=== PATIENT | female | born 1970 | race Caucasian/White ===

== ENCOUNTER → 2020-12-15 12:19 | Outpatient (CLI) | payer BC, SELFPAY ==
[2020-12-15 22:50] LABS: SARS-CoV-2 RNA PCR Negative
== END ==
PROVIDERS: PCP Registered Nurse; Visit Provider Registered Nurse
DX: Z20.822 Contact with and (suspected) exposure to COVID-19 (principal); R21 Rash and other nonspecific skin eruption
CPT/HCPCS: C9803; U0003; U0005

== ENCOUNTER → 2021-01-27 07:13 | Outpatient (CLI) | payer BC, SELFPAY ==
[2021-01-27 16:22] LABS: SARS-CoV-2 RNA PCR Negative
== END ==
PROVIDERS: PCP Registered Nurse; Visit Provider Registered Nurse
DX: R68.89 Other general symptoms and signs (principal); Z20.822 Contact with and (suspected) exposure to COVID-19
CPT/HCPCS: C9803; U0003; U0005

== ENCOUNTER → 2021-04-06 02:20 | Outpatient (CLI) | payer BC, SELFPAY ==
[2021-04-06 18:14] LABS: SARS-CoV-2 RNA PCR Negative
== END ==
PROVIDERS: PCP Registered Nurse; Visit Provider Internal Medicine Gastroenterology
DX: Z01.812 Encounter for preprocedural laboratory examination (principal); Z20.822 Contact with and (suspected) exposure to COVID-19
CPT/HCPCS: C9803; U0003; U0005

== ENCOUNTER 2021-04-08 00:04 | Day surgery (SDC) | payer BC, SELFPAY ==
[2021-03-26 16:01] VITALS: BMI 21.8
[2021-04-08 06:18] VITALS: BP 91/74; PULSE 91; RESP 16; TEMP 36.7; O2SAT 100; BMI 21.2
[2021-04-08] MEDS: LACTATED RINGERS 1,000 ML 150 ML IV CONT (06:29)
--- NOTE | 2021-04-08 07:03 | WPDGICN ---
GI Consult Note Consult date/time: 04/08/21 07:03 HPI: Reason for visit is colonoscopy. This very pleasant lady seen in consultation request the primary physician. Impression: Screening colonoscopy. The patient does have complaints of rectal bleeding. This may be perianal in origin. Underlying inflammatory neoplastic disease should be excluded. Recommendation: Colonoscopy. History: This very pleasant lady is here for screening colonoscopy. She has a history of rectal bleeding of bright red blood per rectum. Consist of blood in the tissue paper and blood in the toilet water. Her GI review systems otherwise unremarkable. This is his 1st colonoscopy. Physical examination: General: very pleasant patient in no acute distress. HEENT: Head was normocephalic sclerae is clear mouth without masses neck was supple. Heart: Rate rhythm regular without S3 or S4. Lungs: CTA. Abdomen: Soft with no guarding or rigidity. Bowel sounds were active. Neurologic: Cranial nerves 2 through 12 intact. No focal defects. No clonus. Musculoskeletal system: Revealed no joint tenderness or swelling no muscle atrophy. Extremities: Reveal no significant edema. Skin: Warm and dry with normal turgor. Mental status: intact. Patient is alert and oriented. Review of Systems Review of Systems: All systems reviewed & are unremarkable except as noted in HPI and below PMFSH Social History Social History Smoking status: Never smoker Substance use: never Substance use type: does not use Living arrangements: with family Spiritual care concerns: No Meds Home Medications and Allergies Home Medications Medication Instructions Recorded Confirmed Type multivit with min-folic acid 1 tablet PO DAILY 03/26/21 04/08/21 History [Women's Multivitamin Gummies] Allergies Allergy/AdvReac Type Severity Reaction Status Date / Time No Known Allergies Allergy Unknown Verified 04/08/21 06:17 Vital Signs Vital Signs - 24 hr 04/08/21 06:18 Temperature 36.7 C Pulse Rate 91 Respiratory Rate 16 Blood Pressure 91/74 L Pulse Oximetry 100
--- NOTE | 2021-04-08 07:09 | P.PNAN_ITS ---
Anes - Initial Pre Proc Eval Procedure: Operation Date: 04/08/21 07:30 Proposed Procedures p Screening Colonoscopy - Ian Grayson DO Date/Time: 04/08/21 07:09 Surgeon: Ian Grayson DO Pre Op Diagnosis: neoplasm screening Patient Data Age: 50 Gender: F Height: 6 ft Weight: 71.2 kg Last Vital Signs Temp 98.1 F 04/08/21 06:18 Pulse 91 04/08/21 06:18 Resp 16 04/08/21 06:18 BP 91/74 L 04/08/21 06:18 Pulse Ox 100 04/08/21 06:18 Allergies Allergy/AdvReac Type Severity Reaction Status Date / Time No Known Allergies Allergy Unknown Verified 04/08/21 06:17 Home Medications Medication Instructions Recorded Confirmed Type multivit with min-folic acid 1 tablet PO DAILY 03/26/21 04/08/21 History [Women's Multivitamin Gummies] Patient hx anesthesia problems: none Family hx anesthesia problems: none [facility] Past Medical History Medical History (Updated 04/08/21 @ 07:08 by Chirag Suero MD) Healthy adult Social History Social History Smoking status: Never smoker Substance use: never Substance use type: does not use Living arrangements: with family Spiritual care concerns: No Anes - Eval Final PreProcedure Day of Procedure 04/08/21 07:09 Patient weight: normal Heart: regular rate and rhythm Lungs: clear to auscultation Airway: Mallampati scale class 1 Neurological: alert and oriented Last oral intake: >/= 8 hours ASA classification: I Emergent: no Anesthetic plan: proceed Anesthesia type and monitoring: general GIVS and standard monitoring Informed Consent: The patient's anesthetic plan and its attendant risks and benefits were discussed with the patient/family/POA. Questions were solicited and answers provided to the satisfaction of the patient/family/POA.
[2021-04-08 07:45] VITALS: BP 95/64; PULSE 70; RESP 16; O2SAT 99
[2021-04-08 07:55] VITALS: BP 94/63; PULSE 70; RESP 19; O2SAT 100
[2021-04-08 08:05] VITALS: BP 97/66; PULSE 63; RESP 14; O2SAT 99
== END 2021-04-08 08:09 | disposition home or self-care (01) ==
PROVIDERS: PCP Registered Nurse; Visit Provider Internal Medicine Gastroenterology
PROC: 0DJD8ZZ Inspection of Lower Intestinal Tract, Via Natural or Artificial Opening Endoscopic (ICD-10-PCS; CPT 45378; principal; 2021-04-08 07:30)
DX: Z12.11 Encounter for screening for malignant neoplasm of colon (principal); K62.5 Hemorrhage of anus and rectum; K64.8 Other hemorrhoids
CPT/HCPCS: 45378; C9803; J2704; J7120; U0003; U0005